=== PATIENT | female | born 1995 | race Caucasian/White ===

== ENCOUNTER 2018-11-17 15:09 | Emergency (ER) | payer OTHER ==
[~2018-11-17] VITALS: Ht 170.2 cm; Wt 70.8 kg
[2018-11-17 15:12] VITALS: Ht 170.2 cm; Wt 70.8 kg
[2018-11-17 17:36] LABS: BASOPHIL % 0.5 % (0-2); PLATELET COUNT 291 x10^3mcL (130-400); RED CELL DISTRIBUTION WIDTH 11.9 % (11.5-14.5)
[2018-11-17 19:09] VITALS: BP 106/80
== END 2018-11-17 19:09 | disposition home or self-care (01) ==
LOC: ED 15:09
PROVIDERS: Emergency Medicine
DX: R10.9 Unspecified abdominal pain (principal); N94.6 Dysmenorrhea, unspecified; J45.909 Unspecified asthma, uncomplicated
CPT/HCPCS: 36415